=== PATIENT | female | born 1985 | race Caucasian/White ===

== ENCOUNTER 2021-02-12 06:06 | Inpatient (IN) | payer OTHER, SELFPAY ==
[2021-02-12] VITALS (112 sets, daily range): BP systolic 95–145; BP diastolic 58–107; PULSE 65–122; RESP 18; TEMP 36.6–36.9; O2SAT 94–99; BMI 27.4
--- OUTSIDE RECORDS SUMMARY | 2021-02-12 06:14 | XMS_ITS | Encounter Summary ---
:1985 Author Care Team Providers Name Role Phone Jasmyne Damon Primary Care Provider [phone] Reason for Visit OB visit Assessment and Plan 1. Routine care Discussion Note: None recorded.Patient educational handouts: No information available. Plan of Care Reminders Provider Appointments Ob Routine Altagracia Torres CNM 02/19/2021 8:30AM Lab None ? ? recorded. Referral None ? ? recorded. Procedures None ? ? recorded. Surgeries None ? ? recorded. Imaging None ? ? recorded. Medications Name Start Date ? ? umimgrmuyr-admmzayzqynzk-wqxxfqqa 50 mg-300 mg-40 mg c apsule ? TAKE ONE CAPSULE BY MOUTH EVERY 4 HOURS ondansetron HCl 4 mg tablet ? TAKE 1 TABLET BY MOUTH EVERY 6 HOURS NEEDED FOR NA USEA OR VOMITING ? sertraline 50 mg tablet ? TAKE 1 TABLET BY MOUTH EVERY DAY Unisom (diphenhydramine) ? Medications Administered None recorded. Vitals Height Weight BMI Blood Pressure 5 ft 0.25 in 150 lbs 29.1 kg/m2 (1) 144/81 mm[H g] (2) 122/80 mm[Hg ] Results Lab Results None recorded. Allergies Code Code System Name Reaction Severity Onset
--- OUTSIDE RECORDS SUMMARY | 2021-02-12 06:14 | XMS_ITS | Encounter Summary ---
:1985 Author Care Team Providers Name Role Phone Jasmyne Damon Primary Care Provider [phone] Reason for Visit OB visit Assessment and Plan 1. Routine care 2. Varicose veins of legs in pre gnancy 3. Umbilical hernia Discussion Note: None recorded.Patient educational handouts: No information available. Plan of Care Reminders Provider Appointments Ob Routine Altagracia Torres CNM 02/19/2021 8:30AM Lab None ? ? recorded. Referral None ? ? recorded. Procedures None ? ? recorded. Surgeries None ? ? recorded. Imaging None ? ? recorded. Medications Name Start Date ? ? gtkrjtvqhl-gbbsaqfbmgwml-ixnopgya 50 mg-300 mg-40 mg c apsule ? [...] BMI Blood Pressure 5 ft 0.25 in 138 lbs 26.7 kg/m2 115/70 mm[Hg] Results Lab Results None recorded. Allergies Code Code Sy
--- OUTSIDE RECORDS SUMMARY | 2021-02-12 06:14 | XMS_ITS | Encounter Summary ---
:1985 Author Care Team Providers Name Role Phone Jasmyne Damon Primary Care Provider [phone] Reason for Visit OB visit Assessment and [...] recorded. Medications Name Start Date ? ? yolnqrnign-robxewcvodwht-xmmfzinx 50 mg-300 mg-40 mg c apsule ? [...] BMI Blood Pressure 5 ft 0.25 in 148 lbs 28.7 kg/m2 118/76 mm[Hg] Results Lab Results None recorded. Allergies Code Code System Name Reaction Severity Onset Sulfa ?
--- OUTSIDE RECORDS SUMMARY | 2021-02-12 06:14 | XMS_ITS ---
:1985 Author Care Team Providers Name Role Phone LINNETTE INFANTE Primary Care Provider [phone] Allergies Code Code Name Reaction Severity Status Onset System Sulfa ? ? Active ? (Sulfonamide Antibiotics) 21185 RxNorm Sulfanilamide ? ? Deactivated ? Medications Name Status Start Date Stop Date ? ? Afluria Qd (36 mos up)(PF)60 mcg (15 mcg x4)/0 .5 mL IM syringe Completed ? 06/26/2020 ADM 0.5ML IM UTD amitriptyline 75 mg tablet Completed 03/05/201808/17 take 1 tablet by oral route every day at bedtime amoxicillin 500 mg tablet Completed ? 2020 spjehgeiek-gvxateaesxfxy-rycvrylf 50 mg-300 mg-40 mg capsule Act ezekiel ? Not available TAKE ONE CAPSULE BY MOUTH EVERY 4 HOURS fenugreek seed extract 500 mg Completed ? capsule fluconazole 150 mg tablet Completed ? 2019 metronidazole 0.75 % vaginal gel Completed ? 10/31/2020 INSERT ONE APPLICATORFUL VAGINALLY AT BEDTIME FOR 5 DAYS Tatyana 0.35 mg tablet Active 06/11/2019 Not availa ble take 1 tablet by oral route every day ondansetron HCl 4 mg tablet Active ? Not available TAKE 1 TABLET BY MOUTH EVERY 6 HOURS NEEDED FOR NAUSEA OR VO MITING oseltamivir 75 mg capsule Completed ? 2020 TAKE 1 CAPSULE BY MOUTH TWICE DAILY FOR 5 DAYS Active ? Not available + DHA 28 mg iron-975 mcg-200 mg oral pack Completed 04/27/2018 08/17/2018
--- OUTSIDE RECORDS SUMMARY | 2021-02-12 06:14 | XMS_ITS | Encounter Summary ---
:1985 Author Care Team Providers Name Role Phone Jasmyne Damon Primary Care Provider [phone] Reason for Visit OB visit Assessment and [...] recorded. Medications Name Start Date ? ? zueggvbadk-pnqwkmueyfuwb-zbozvsmm 50 mg-300 mg-40 mg c apsule ? [...] ft 0.25 in 150 lbs 29.1 kg/m2 122/77 mm[Hg] Results Lab Results None recorded. Allergies Code Code System Name Reaction Severity Onset Sulfa ?
--- OUTSIDE RECORDS SUMMARY | 2021-02-12 06:14 | XMS_ITS | Encounter Summary ---
:1985 Author Care Team Providers Name Role Phone Jasmyne Damon Primary Care Provider [phone] Reason for Visit OB visit Assessment and Plan Assessment Note Patient is ___weeks . Discu ssed plan. 1. Routine care Discussion Note: None recorded.Patient educational handouts: No information available. Plan of Care Reminders Provider Appointments Ob Routine Altagracia Torres CNM 02/19/2021 8:30AM Lab None ? ? recorded. Referral None ? ? recorded. Procedures None ? ? recorded. Surgeries None ? ? recorded. Imaging None ? ? recorded. Medications Name Start Date ? ? cinmnmfarg-gbihhtdgounlv-iuamgayp 50 mg-300 mg-40 mg c apsule ? [...] BMI Blood Pressure 5 ft 0.25 in 142 lbs 27.5 kg/m2 113/74 mm[Hg] Results Lab Results None recorded. Allergies Code
[2021-02-12] MEDS: LACTATED RINGERS 1,000 ML 125 ML IV CONT ×2 (06:47→10:35)
--- NOTE | 2021-02-12 06:57 | LDADM ---
This patient, Elier Taylor, was admitted to Labor/Delivery/Recovery 106 on 02/12/21 at 06:06. Plans for labor, pain management and were discussed with patient. Patient/family oriented to hospital policies and general routines including ID bracelet, bed and alarms, visiting hours, pain management, procedures, bathroom and other care routines, personal items, smoking policy, room service/diet and guest tray routines, infant security routines, and visiting hours. Patient/Family are encouraged to report perceived risks to care and to ask questions if they do not understand what they are told or what they should do. See OBIX for further documentation.
[2021-02-12 06:59] LABS: Basophils Percent Auto 0.4 % (0.2-1.2); Eosinophils Absolute Auto 0.1 K/mm3 (0-0.3); Eosinophils Percent Auto 1.5 % (0-4.4); Hematocrit 39.4 % (37.0-47.0); Hemoglobin 13.1 g/dL (12.0-15.0); Immature Granulocyte Absolute 0.11 K/mm3 (0.00-0.031); Immature Granulocyte Percent A 1.2 % (0-0.5); Lymphocytes Absolute Auto 1.72 K/mm3 (0.9-3.2); Mean Corpuscular HGB Conc 33.2 g/dl (32-36); Mean Corpuscular Hemoglobin 30.5 pg (26-34); Mean Corpuscular Volume 91.8 fl (80-100); Monocytes Percent Auto 10.9 % (2.6-8.5); Neutrophils Absolute Auto 6.5 K/mm3 (1.3-6.7); Platelet Count Result 184 k/mm3 (150-375); Red Blood Count 4.29 M/mm3 (4.2-5.4); Red Cell Distribution Width 14.1 % (11.5-14.5); White Blood Count 9.5 K/mm3 (4.5-10.0)
[2021-02-12] MEDS: OXYTOCIN 30 UNITS/NS 500 ML 30 UNITS/500 ML BAG IV CONT (07:55)
--- NOTE | 2021-02-12 07:57 | PM.IMHP ---
H&P: HPI History of Present Illness Date/Time: 02/12/21 07:57 Chief Complaint: induction of labor Narrative: Elier is a 36yo at 39.1 who presents for elective IOL. complicated by migraines, anxiety, and umbilical hernia. Today on admission, she was transverse by Jael. BSUS confirmed this with head initially in RUQ. During BSUS fetus converted to oblique/vertex. Review of Systems Review of Systems: All systems reviewed & are unremarkable except as noted in HPI and below PMFSH Family History Family History Mother Diabetes mellitus Hypertension Grandparent Chronic obstructive pulmonary disease Social History Social History (System 05/03/19 @ 15:26 by Jewell Santos) Smoking status: Never smoker Second hand tobacco smoke exposure: Yes Substance use: never Spiritual care concerns: No Meds Home Medications and Allergies Home Medications Medication Instructions Recorded Confirmed Type PNV cmb#95-ferrous fumarate-FA 1 tablet PO DAILY 04/19/19 04/19/19 History [] acetaminophen [Mapap 650 mg PO Q6H PRN tablet 05/05/19 Rx (acetaminophen)] diphenhydramine HCl [Unisom 50 mg PO HS 01/22/21 01/22/21 History SleepGels] magnesium 30 mg PO DAILY 01/22/21 01/22/21 History sertraline 50 mg PO DAILY 01/22/21 01/22/21 History Allergies Allergy/AdvReac Type Severity Reaction Status Date / Time Sulfa (Sulfonamide Allergy Mild Hives / Verified 05/03/19 19:12 Antibiotics) Red Face Vital Signs Vital Signs - 24 hr 02/12/21 06:29 02/12/21 06:31 02/12/21 06:46 Pulse Rate 89 87 88 Blood Pressure 136/91 H 129/85 130/90 02/12/21 07:01 02/12/21 07:16 02/12/21 07:31 Pulse Rate 115 H 87 89 Blood Pressure 131/85 122/80 122/87 Exam Const: General: no acute distress Resp: Effort & Inspection: normal respiratory effort Auscultation: clear to auscultation bilaterally Cardio: Rate: regular rate Rhythm: regular rhythm GI: GI Palp: Yes Soft to palpation Extrem: General: normal to inspection H&P: Results Labs Labs: Short CBC 02/12/21 Range/Units 06:39 WBC 9.5 (4.5-10.0) K/mm3 Hgb 13.1 (12.0-15.0) g/dL Hct 39.4 (37.0-47.0) % Plt Count 184 (150-375) k/mm3 Assessment and Plan Additional Plan Here for induction of labor- but unstable lie Currently oblique/vertex. Will place abdominal binder and start pitocin. Cervix 50/-5. Cannot AROM due to very high station. GBS neg Planning interval LSC tubal in couple mos, will do with CS if CS is necessary. FHT category 1
--- NOTE | 2021-02-12 08:08 | W.PM.PROC2 ---
Procedure Note - Detailed Date of Procedure 02/12/21 Pre-op Diagnosis transverse lie Post-op Diagnosis same Procedure Performed External Cephalic Version Surgeon Nita Lang MD [facility] Labor Supervisor none Anesthesia none Indications Pt presented for induction at 39.1 and was found to be transverse lie. Findings Unstable lie- transverse with head RUQ, transverse head RLQ, oblique. Description of Procedure During ultrasound evaluation, when pressure was put on vertex in RLQ to assess how mobile the fetus was, the fetus converted to oblique and then quickly to vertex within seconds. Heart tones were reactive after this. An abdominal binder was placed and pitocin was started. Estimated Blood Loss 0 Drains No Packing No Pathology none sent Complications None Condition stable Disposition observation
--- NOTE | 2021-02-12 08:44 | WPDANESEPP ---
Anes - Eval Pre Procedure Date/Time: 02/12/21 08:44 Pre Op Diagnosis: Induction of Labor Patient Data Age: 36 Gender: F Height: 1.57 m Weight: 68.1 kg Last Vital Signs Temp 36.9 C 02/12/21 08:00 Pulse 90 02/12/21 08:31 BP 127/86 02/12/21 08:31 Allergies Allergy/AdvReac Type Severity Reaction Status Date / Time Sulfa (Sulfonamide Allergy Mild Hives / Verified 05/03/19 19:12 Antibiotics) Red Face Home Medications Medication Instructions Recorded Confirmed Type PNV cmb#95-ferrous fumarate-FA 1 tablet PO DAILY 04/19/19 02/12/21 History [] acetaminophen [Mapap 650 mg PO Q6H PRN tablet 05/05/19 02/12/21 Rx (acetaminophen)] diphenhydramine HCl [Unisom 50 mg PO HS 01/22/21 02/12/21 History SleepGels] magnesium 30 mg PO DAILY 01/22/21 02/12/21 History sertraline 50 mg PO DAILY 01/22/21 02/12/21 History Laboratory Tests 02/12/21 02/12/21 02/12/21 06:37 06:37 06:39 WBC 9.5 K/mm3 K/mm3 (4.5-10.0) RBC 4.29 M/mm3 M/mm3 (4.2-5.4) Hgb 13.1 g/dL g/dL (12.0-15.0) Hct 39.4 % % (37.0-47.0) MCV 91.8 fl fl (80-100) MCH 30.5 pg pg (26-34) MCHC 33.2 g/dl g/dl (32-36) RDW 14.1 % % (11.5-14.5) Plt Count 184 k/mm3 k/mm3 (150-375) MPV 10.0 fl fl (7.4-10.4) Immature Gran % (Auto) 1.2 % H % (0-0.5) Neut % (Auto) 68.0 % % (45.5-73.1) Lymph % (Auto) 18.0 % L % (18.3-44.2) [place] % (Auto) 10.9 % H % (2.6-8.5) Eos % (Auto) 1.5 % % (0-4.4) Baso % (Auto) 0.4 % % (0.2-1.2) Lymph # (Auto) 1.72 K/mm3 K/mm3 (0.9-3.2) [place] # (Auto) 1.0 K/mm3 H K/mm3 (0.1-0.6) Eos # (Auto) 0.1 K/mm3 K/mm3 (0-0.3) Baso # (Auto) 0.0 K/mm3 K/mm3 (0.0-0.1) Abs Immat Gran (auto) 0.11 K/mm3 H K/mm3 (0.00-0.031) Absolute Neuts (auto) 6.5 K/mm3 K/mm3 (1.3-6.7) Absolute Nucleated RBC 0.0 K/mm3 K/mm3 (0.0-0.012) Nucleated RBC % 0.0 % % (0.0-0.2) RPR Pending Blood Type A Positive Antibody Screen Negative Patient hx anesthesia problems: none Family hx anesthesia problems: none [facility] Family History Family History Mother Diabetes mellitus Hypertension Grandparent Chronic obstructive pulmonary disease Social History Social History Smoking status: Never smoker Second hand tobacco smoke exposure: Yes Substance use: never Spiritual care concerns: No Exam Day of Procedure 02/12/21 08:44 Patient weight: normal Heart: regular rate and rhythm Lungs: normal air movement Airway: Mallampati scale class II Neurological: alert and oriented
[2021-02-12] MEDS: LACTATED RINGERS 1,000 ML 999 ML IV CONT (09:24)
--- NOTE | 2021-02-12 15:42 | PM.OBPRVD ---
OB - Delivery Note Procedure Delivery date: 02/12/21 Procedure: Intrapartal events: Other (unstable lie) Induction method: AROM and per pitocin protocol Delivery monitor: external FHT and internal uterine Route of delivery: Laceration Description: None Specimen: No Quantitative Blood Loss (ml): 350 Anesthesia type: Epidural Disposition: floor Narrative: With adequate expulsive efforts by the mother, the baby's head was delivered OA. The baby's anterior shoulder was delivered under the pubic symphysis without difficulty. The posterior shoulder and the rest of the baby delivered without difficulty. The infant was placed on the mothers chest and suctioned and stimulated. The cord was clamped and cut after 30 seconds. Mother and baby both stable. Baby Date of : 02/12/21 Time of : 15:28 Weeks of gestation at delivery: 39 Infant gender: Female Weight (pounds): 7 Weight (ounces): 15 presentation: vertex Placenta delivery description: Spontaneous cord vessel description: 3 Vessels, Nuchal Cord and Delayed Cord Clamping score one minute: 8 score five minutes: 8
[2021-02-12] MEDS: OXYTOCIN 30 UNITS/NS 500 ML 30 UNITS/500 ML BAG 125 UNITS IV CONT (16:14)
[2021-02-12] MEDS: IBUPROFEN 600 MG TABLET PO (16:53)
[2021-02-12] MEDS: SERTRALINE HCL 50 MG TABLET PO (23:27)
[2021-02-13 00:10] VITALS: BP 114/69; PULSE 83; RESP 16; TEMP 36.6; O2SAT 97
[2021-02-13 04:18] VITALS: BP 112/71; PULSE 75; RESP 18; TEMP 36.6; O2SAT 98
[2021-02-13 05:18] LABS: Hematocrit 36.4 % (37.0-47.0)
[2021-02-13 07:20] VITALS: BP 115/74; PULSE 74; RESP 18; TEMP 36.7
--- NOTE | 2021-02-13 07:46 | P.PNOB_ITS ---
OB - PN: Subj Subjective Date/time seen: 02/13/21 07:46 Patient comments: no complaints and pain well controlled baby status: nursing well [place] feeding status: exclusively breast feeding Narrative: Desires DC home today. E/A/V. OB - PN: Obj Data Labs CBC & Chem 7: 02/13/21 04:02 Labs: Laboratory Results - last 24 hr 02/12/21 02/13/21 06:37 04:02 Hgb 12.0 Hct 36.4 L Blood Type A Positive Antibody Screen Negative OB - PN A/P Plan day: 1 Plan: routine care and discharge home Comments: DC instructions given Time Spent With Patient Time: Total time spent is greater than 50% in coordination of care (as documented) at patient's floor/unit and/or counseling patient: Time with patient: less than 15 minutes Exam Narrative: NAD abdomen soft, nontender, fundus firm below the umbilicus Extremities nontender, 1+ edema
--- NOTE | 2021-02-13 07:54 | PM.OBDSVD ---
DS: Admitting Diagnosis Discharge Date 02/13/21 Admitting Diagnosis term DS: Discharge Diagnosis Discharge Diagnosis (1) , delivered: Code(s): O80 - Encounter for full-term uncomplicated delivery Status: Acute OB - DS: Summary OB Procedures : Ultrasound and External version OB Procedures Intrapartum: Spontaneous Vag Delivery OB Procedures: : None Peripartum Data Infant Delivery Method: Natural Vaginal complications: none Status at Discharge Functional status at discharge: independent ambulation Time Spent with Patient Time attestation: Total time spent providing and/or coordinating discharge services: Time spent: Less than 30 minutes Exam Narrative: NAD abdomen soft, appropriately tender Ext non tender, 1+ edema DS: Data Data Completed and Pending Labs on day of discharge: Labs from last 24 hours 02/13/21 02/12/21 04:02 06:37 Hgb 12.0 Hct 36.4 L Blood Type A Positive Antibody Screen Negative Discharge Plan Discharge Attending physician on discharge: Nita Lang Discharging Clinician: Nita Lang Anticipated Discharge Date/Time: 02/13/21 12:00 Patient Disposition: Home, Self-Care Activity: pelvic rest Diet: as tolerated Patient Instructions: Antibiotic Form Stand Alone Forms: General Discharge Information Follow-up/Referrals: Nita Lang MD [Physician] - 4 Weeks Discharge Medications: Continued PNV cmb#95-ferrous fumarate-FA [] 28 mg iron- 800 mcg Tablet 1 tablet PO DAILY RF: 0 acetaminophen [Mapap (acetaminophen)] 325 mg Tablet 650 mg PO Q6H PRN (Reason: Mild Pain (1-3) Or Headache) RF: 0 sertraline 50 mg Tablet 50 mg PO DAILY RF: 0 magnesium 30 mg Tablet 30 mg PO DAILY RF: 0 Discontinued diphenhydramine HCl [Unisom SleepGels] 50 mg Capsule 50 mg PO HS RF: 0 Date of admission: 02/12/21 06:06 Primary Care Provider: UNKNOWN,DOCTOR Admitting Provider: Nita Lang Attending physician on admission: Nita Lang Condition: Stable
[2021-02-13 09:46] LABS: Rapid Plasma Reagin Non-Reactive (NonReactive)
--- NOTE | 2021-02-13 10:50 | WPDANLDPN2 ---
Anes-Prog Note L&D Date/Time: 02/13/21 10:50 Comfortable throughout: labor and delivery Neuraxial method: epidural Neuro status: Neuro function grossly intact. Cardiovascular status: normal Respiratory status: normal Airway patency: baseline Mental status: baseline Post-Op hydration status: normal Vital Signs: Last Vital Signs Temp 36.7 C 02/13/21 07:20 Pulse 74 02/13/21 07:20 Resp 18 02/13/21 07:20 BP 115/74 02/13/21 07:20 Pulse Ox 98 02/13/21 04:18 Pain score (VAS): 0 I/O: Intake & Output 02/12/21 02/13/21 02/13/21 23:59 07:59 15:59 Intake Total 1400 Balance 1400 Post-procedural complaints: none Patient feedback: Patient satisfied with anesthetic care.
[2021-02-13 12:10] VITALS: BP 118/63; PULSE 81; RESP 18; TEMP 36.9; O2SAT 97
--- NOTE | 2021-02-13 15:00 | PC.NURSE ---
PT introductions made and plan of care discussed per post , pain management, breast feeding, daily care activities and pending discharge to home. PT sole recipient of education and instructions this shift. Pt received instructions per one to one discussion , mom baby care guide and demonstrations. No evidence of any learning barriers at this time. PT verbalized understanding
[2021-02-13] MEDS: IBUPROFEN 600 MG TABLET PO (16:34)
[2021-02-13] MEDS: DOCUSATE SODIUM 100 MG CAPSULE PO (16:34)
--- NOTE | 2021-02-13 18:00 | PC.NURSE ---
Pt receive discharge instructions per protocol and verbalized understanding of such care. Patient was given the opportunity to view the discharge video Mother & Baby Care, The First Two Weeks and to ask questions. Patient declined viewing the video and has been given the mother/baby guide for home reference.
--- NOTE | 2021-02-13 19:01 | PC.NURSE ---
PT discharged to home ambulatory unaccompanied with in safety seat and escorted to waiting car. Follow up appts confirmed
[2021-02-16 09:26] VITALS: BP 115/74; PULSE 96; RESP 20; TEMP 36.8; O2SAT 100
== END 2021-02-13 19:01 | disposition home or self-care (01) | DRG 807 ==
LOC: ANHLDR 06:12 → ANHOB2 18:39
PROVIDERS: Admitting Provider Obstetrics & Gynecology; Visit Provider Obstetrics & Gynecology
DX: O32.2XX0 Maternal care for transverse and oblique lie, not applicable or unspecified (principal); Z37.0 Single live birth; Z3A.39 39 weeks gestation of pregnancy; O69.81X0 Labor and delivery complicated by cord around neck, without compression, not applicable or unspecified; O99.344 Other mental disorders complicating childbirth; F41.9 Anxiety disorder, unspecified; O99.62 Diseases of the digestive system complicating childbirth; K42.9 Umbilical hernia without obstruction or gangrene
CPT/HCPCS: 36415; 85014; 85018; 85025; 86592; 86850; 86900; 86901; A9270; J2590; J2795; J7120

== ENCOUNTER 2021-04-16 00:08 | Day surgery (SDC) | payer OTHER, SELFPAY ==
[2021-04-13 08:47] VITALS: BMI 23.8
--- NOTE | 2021-04-13 08:57 | PC.NURSE ---
Report to the Outpatient Waiting Room, entrance under the green pavilion located off [facility], at time 1000 on date 04/16/21. OR Time: 1200. - You and your visitor will be asked a series of questions to screen for COVID 19 for your protection. - A mask is required within the hospital. - Only one visitor is allowed at this time. Patient visitors will be guided where to wait when not with patient. Preoperative COVID Testing Requirements: No COVID Test needed if: (proof is required; if not received patient will have Rapid Test prior to entry) - Patient has received COVID Vaccine at least 14 days prior to procedure date or - Patient has positive COVID test result within last 90 days of surgery date. COVID Test needed if above criteria is not met If not COVID vaccinated a COVID test must be conducted within 72 hours of surgery and patient is asked to isolate self from time of testing until procedure. You will go to the [facility] for your COVID testing. The [facility] site is located at the corner of [address] [facility]. You will only be called if COVID results are positive and your surgeon may reschedule your elective surgery date. Patients may have clear liquids (water, carbonated beverages, clear teas, apple juice) until 3 hours prior to surgery with a maximum of 20 ounces. - No food from midnight until time of surgery - Infants may have breast milk until 4 hours before surgery, infant formula 6 hours prior to surgery. - Children will be allowed to drink immediately following surgery. If applicable, please bring a bottle or sippy cup to assist with drinking. Juice, water, soda, and popsicles are readily available. For infants on formula, please bring formula the day of surgery. Pacifiers are allowed. Take the following medications with a SIP of water the morning of surgery: N/A Medications to discontinue per physician: VITAMINS Date to take last dose: 04/13/21 Please no make-up, nail turkmen, hairspray, perfume, deodorant, or body powder the day of surgery. No jewelry (including any body piercings) or valuables the day of surgery, leave them at home. Please take a shower or bath the night before, or the morning of, surgery with an antibacterial soap. Wear comfortable, loose fitting clothing. Children are encouraged to wear pajamas. - Jewelry must be removed prior to entering the operating room. Rings and piercings that are not removed may be cut off. - The hospital will not accept responsibility for valuables. - Please leave all valuables, including medications, at home the day of surgery. If you are going home after surgery, a licensed driver helper must drive you home. - NO public transportation without another adult. - We recommend that an adult stay with you for 24 hours following discharge. - We also recommend that you do not drive, make important decision, drink alcoholic beverages, or take any drugs that were not prescribed by your health care provider for at least 24 hours after your discharge time. For Pediatric surgeries, we recommend two adults accompany the child home (only one inside the building at this time). Follow any additional instructions given to you from your surgeon. Telephone instructions given to WAYLON STEPHENS and asked if any additional questions and then verbalized understanding. Patient advised to call surgeon office or pre surgery nurse liaison [phone] if any additional questions.
[2021-04-16] VITALS (10 sets, daily range): BP systolic 107–125; BP diastolic 65–80; PULSE 66–87; RESP 12–20; TEMP 36.3; O2SAT 96–100
--- NOTE | 2021-04-16 07:50 | PM.HPGS ---
History of Present Illness History of Present Illness Consent: Risks, benefits, and alternatives of a periumbilical ventral hernia repair, laparoscopic, with mesh have been discussed and questions answered. Patient agrees to proceed with procedure. Chief complaint: umbilical hernia Narrative: Elier Taylor is a 36 year old female that recently presented to the office at the request of Dr Noble for an evaluation of an umbilical hernia. Patient reports that she had a umbilical bulge that is reducible that is painful at times. She reports she noticed the hernia in May 2019 after delivery of her son. She thought this would go away with time however instead with time it has become larger. She reports she did get again and delivered her daughter on 02/12/21. She reports that she does occasionally have pain. She reports that she can reduce the hernia when laying down however as soon as she stands up it protrudes out again. When discussing her pervious surgical history she reports that she had to have an IUD removed in 2007, this was removed laparoscopically. Review of Systems Review of Systems: All systems reviewed & are unremarkable except as noted in HPI and below (HPI) Constitutional: Constitutional: Reports as per HPI, Denies chills and Denies fever(s) Eyes: Eyes: Reports no additional eye complaints ENT: Reports Normal hearing present and Denies dizziness Cardiovascular: Cardiovascular: Reports no additional cardiovascular complaints, Denies chest pain and Denies irregular heart rhythm Respiratory: Respiratory: Reports no additional respiratory complaints Gastrointestinal: Gastrointestinal: Reports no additional gastrointestinal complaints, Denies abdominal pain and Denies bloating Comments: diffuse discomfort at the site had an just below her umbilicus with bulging. Genitourinary: Genitourinary: Denies hematuria Comments: Recently (see OB notes). Musculoskeletal: Musculoskeletal: Denies back pain Integumentary/Breasts: Skin/Breast: Reports system reviewed and no additional complaints, except as docu Neurologic: Reports Normal hearing present, Denies Abnormal speech present, Denies confusion and Denies dizziness Psychiatric: Psychiatric: Reports no additional psychiatric complaints and Denies confusion Endocrine: Endocrine: Reports no additional endocrine complaints Hematologic/Lymphatic: Hematologic/Lymphatic: Denies easy bleeding and Denies easy bruising Allergic/Immunologic: Allergic/Immunologic: Reports no additional allergic/immunologic complaints PMFSH Past Medical History Medical History Depression Surgical History Surgical History History of knee surgery History of tonsillectomy Family History Family History Mother Diabetes mellitus Hypertension Grandparent Chronic obstructive pulmonary disease Social History Social History Smoking status: Never smoker Second hand tobacco smoke exposure: Yes Alcohol intake: never Substance use: never Substance use type: does not use Living arrangements: with family Additional living arrangements comments: CHILDREN 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 Spiritual care concerns: No Meds Home Medications and Allergies Home Medications Medication Instructions Recorded Confirmed Type PNV cmb#95-ferrous fumarate-FA 1 tablet PO DAILY 04/19/19 04/16/21 History [] sertraline 50 mg PO HS 01/22/21 04/16/21 History diphenhydramine HCl 50 mg capsule 50 mg PO QHS 02/27/21 04/16/21 History Allergies Allergy/AdvReac Type Severity Reaction Status Date / Time Sulfa (Sulfonamide Allergy Mild Hives / Verified 04/16/21 11:03 Antibiotics) Red Face Exam Const:
[2021-04-16] MEDS: LACTATED RINGERS 1,000 ML 30 ML IV CONT ×2 (10:42→14:07)
[2021-04-16] MEDS: ACETAMINOPHEN 500 MG TABLET 1000 MG PO (10:45)
[2021-04-16] MEDS: KETOROLAC 15 MG/ML VIAL (*BKC) IV PUSH (10:46)
--- NOTE | 2021-04-16 11:09 | WPDANESEPPF ---
Anes - Initial Pre Proc Eval Procedure: Operation Date: 04/16/21 12:00 Proposed Procedures p Laparoscopic Umbilical Hernia Repair with Mesh - Gregory Rollins MD s Laparoscopic Bilateral Salpingectomy - Nita Lang MD Date/Time: 04/16/21 11:09 Surgeon: Gregory Rollins MD Pre Op Diagnosis: umbilical hernia Patient Data Age: 36 Gender: F Height: 1.57 m Weight: 59.2 kg Last Vital Signs Temp 36.3 C L 04/16/21 11:04 Pulse 75 04/16/21 11:04 Resp 18 04/16/21 11:04 BP 111/70 04/16/21 11:04 Pulse Ox 100 04/16/21 11:04 Allergies Allergy/AdvReac Type Severity Reaction Status Date / Time Sulfa (Sulfonamide Allergy Mild Hives / Verified 04/16/21 11:03 Antibiotics) Red Face Home Medications Medication Instructions Recorded Confirmed Type PNV cmb#95-ferrous fumarate-FA 1 tablet PO DAILY 04/19/19 04/16/21 History [] sertraline 50 mg PO HS 01/22/21 04/16/21 History diphenhydramine HCl 50 mg capsule 50 mg PO QHS 02/27/21 04/16/21 History Patient hx anesthesia problems: none Family hx anesthesia problems: none Results Review: All pre-operative results and documents have been reviewed as part of the pre-operative evaluation. 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 Informed Consent: The patient's anesthetic plan and its attendant risks and benefits were discussed with the patient/family/POA. Questions were solicited and answers provided to the satisfaction of the patient/family/POA.
--- NOTE | 2021-04-16 12:00 | PM.IMHP ---
H&P: HPI History of Present Illness Date/Time: 04/16/21 12:00 Chief Complaint: sterilization Narrative: Elier is a with a 2mo here for sterilization with bilateral salpingectomy at the same time as umbilical hernia repair with Dr. Rollins. Review of Systems Review of Systems: All systems reviewed & are unremarkable except as noted in HPI and below PMFSH Past Medical History Medical History Depression Surgical History Surgical History History of knee surgery History of tonsillectomy Family History Family History Mother Diabetes mellitus Hypertension Grandparent Chronic obstructive pulmonary disease Social History Social History Smoking status: Never smoker Second hand tobacco smoke exposure: Yes Alcohol intake: never Substance use: never Substance use type: does not use Living arrangements: with family Additional living arrangements comments: CHILDREN 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[employer] Spiritual care concerns: No Meds Home Medications and Allergies Home Medications Medication Instructions Recorded Confirmed Type PNV cmb#95-ferrous fumarate-FA 1 tablet PO DAILY 04/19/19 04/16/21 History [] sertraline 50 mg PO HS 01/22/21 04/16/21 History diphenhydramine HCl 50 mg capsule 50 mg PO QHS 02/27/21 04/16/21 History Allergies Allergy/AdvReac Type Severity Reaction Status Date / Time Sulfa (Sulfonamide Allergy Mild Hives / Verified 04/16/21 11:03 Antibiotics) Red Face Vital Signs Vital Signs - 24 hr 04/16/21 11:04 Temperature 97.3 F L Pulse Rate 75 Respiratory Rate 18 Blood Pressure 111/70 Pulse Oximetry 100 Exam Const: General: no acute distress Resp: Effort & Inspection: normal respiratory effort Auscultation: clear to auscultation bilaterally Cardio: Rate: regular rate Rhythm: regular rhythm GI: GI Palp: Yes Soft to palpation Extrem: General: normal to inspection Assessment and Plan Assessment and plan (1) Sterilization: Code(s): Z30.2 - Encounter for sterilization Status: Acute Additional Plan Will proceed with LSC bilateral salpingectomy. Dr Rollins to place ports, i will do salpingectomy, and he will complete hernia repair and close. Pt and 100% sure they do not desire more pregnancies.
--- NOTE | 2021-04-16 12:03 | WPDHPUPDATE1 ---
History and Physical Update Update Date/Time: 04/16/21 12:03 History and Physical has been reviewed, including an updated exam of the patient. There are NO changes in the patient's condition. Risks, benefits, and alternatives have been discussed and questions answered. Patient agrees to proceed with procedure.
[2021-04-16] MEDS: ceFAZolin 2 GM/D5W 50 ML 2 GM/50 ML BAG IVPB (12:06)
--- NOTE | 2021-04-16 12:08 | WPDHPUPDATE1 ---
History and Physical Update Update Date/Time: 04/16/21 12:08 History and Physical has been reviewed, including an updated exam of the patient. There are NO changes in the patient's condition. Risks, benefits, and alternatives have been discussed and questions answered. Patient agrees to proceed with procedure.
[2021-04-16] MEDS: LIDO 2%/EPINEPHRINE 1:100,000 20 ML VIAL INFILTRATE (12:14)
--- NOTE | 2021-04-16 13:16 | W.PM.PROC2 ---
Procedure Note - Detailed Date of Procedure 04/16/21 Pre-op Diagnosis umbilical hernia Post-op Diagnosis same Procedure Performed Laparoscopic Bilateral Salpingectomy Surgeon Nita Lang MD Anesthesia general Indications undesired future fertility Description of Procedure The patient was taken to the OR and placed in dorthal lithotomy in [facility]. She received general anesthesia. A speculum was placed and the cervix grasped with a single tooth tenaculum and an acorn uterine manipulator placed easily. A myers catheter had previously been placed. She had received preoperative antibiotics. As Dr. Rollins will subsequently be doing a laparoscopic umbilical hernia repair, he placed the ports and removed an adhesion of the omentum to the umbilical defect. The right tube was grasped and elevated and using the Ligasure device, the tube was sequentially cauterized and ligated and removed through the trocar and sent to pathology. Similarly, on the left, the tube was removed using the Ligasure device. Hemostasis was noted. The surgical field was turned back over to Dr. Rollins for the hernia repair. The uterine manipulator was removed and the cervix was noted to be hemostatic with pressure. EBL 5cc for my part. Estimated Blood Loss 5 Drains No Packing No Pathology yes Complications No immediate complications Condition stable Disposition same day
--- NOTE | 2021-04-16 14:20 | W.PM.PROC2 ---
Procedure Note - Detailed Date of Procedure 04/18/21 Pre-op Diagnosis umbilical hernia (with it mostly in the inferior part of umbilicus) Post-op Diagnosis same Procedure Performed Laparoscopic umbilical hernia repair with mesh Surgeon Gregory Rollins MD Scrap Worker Freida RICO, OR supply assistant Anesthesia general Description of Procedure DESCRIPTION OF PROCEDURE: The patient was placed in the supine position on the operative table and after induction of adequate general endotracheal anesthesia by Luis Antonio Anesthesia, the entire abdomen was prepped and draped in usual sterile fashion and the head placed slightly up. An Ioban drape was used to prevent contact of the mesh with the skin during this clean case. Following this, local anesthetic was placed and a spot selected about two fingerbreadths below the costal margin on the left and a small incision made after instilling local anesthetic using 2% Xylocaine with epinephrine. Following this, a Veress needle technique using the water drop test was completed. Using 2 towel clips on the skin, I carefully elevated the skin and then passed the Veress needle into the abdomen and we could see that the saline dropped through the Veress needle easily. CO2 gas was connected and the abdomen was insufflated to 14 mm Hg pressure. Following this, the 0 degree 5 mm laparoscope was placed inside a 5 mm trocar, which was carefully twisted into the abdomen without difficulty, seeing a open pneumoperitoneum as we entered. Thus, the trocar was removed, the sleeve confirmed to be nicely within the abdomen, and we carefully inspected the anterior abdomen. Careful inspection of the abdomen revealed no inguinal hernias. A small defect in the umbilicus that was actually difficult to see initially, but after placing a 12 mm port in the left lower quadrant under direct vision with the laparoscope, we could see up into a 25 mm multiloculated defect that had been measured then with an instrument with a known cm marker. There was no incarceration of any omentum, but some edge of the omentum stuck to the edge of the fascia superior side of the hernia defect. Other than that there were not any other adhesions to the underside of the umbilicus. We had a little bleeding from this, and lost about 5 mL of blood. This was nicely cauterized and then moved out of the way. Following this Dr. Nita Lang who was present in the room had discussed sterilization with the patient performed bilateral salpingectomies with a LigaSure device. (See her separate op note). As she began doing this it became apparent that another port was needed. Therefore, a right mid abdomen 5 mm port was placed under direct vision with a laparoscoped fairly far out laterally. She used this and I also used it to do some of the tacking on the left side of the mesh described below. Following this, we carefully planned by measuring the defect. Our mesh, a circular 11 cm piece of Venta-lite mesh was chosen, so that we would have 4.0 cm of overlap in all directions over the circular umbilical defect. Following this, the ventra-lite hernia system mesh was rolled and this was inserted through the LLQ 12 mm port after rolling it to protect the absorbable covering on the downside of the mesh. the company provided to centering suture and the rolled piece of mesh was placed through the 12 mm trocar and was positioned directly underneath the umbilicus such that I could grab this and pull it up through the umbilical area with a suture Passer. I used the suture passer after making a small opening with an 11 blade knife, after placing local anesthetic directly in the center of the umbilicus or the skin of the tissue lying directly over the umbilical defect. The suture passer was used to grasp this centering stitch on the piece of mesh, and this was pulled up, centering it. Then I pulled up on centering suture and placed hemostatic externally on it to keep i
[2021-04-16] MEDS: fentaNYL CITRATE INJ (*CRX) 100 MCG/2 ML VIAL 25 MCG IV PUSH ×4 (14:28→15:34)
--- NOTE | 2021-04-16 14:55 | SUR.PHASEI ---
[id number] - dr. jordan at bedside talking with pt
[2021-04-16] MEDS: oxyCODONE HCL (*CRX) 5 MG TAB IR PO (15:35)
== END 2021-04-16 16:50 | disposition home or self-care (01) ==
PROVIDERS: Obstetrics & Gynecology; Visit Provider Surgery
PROC: (CPT 49652; principal; 2021-04-16 12:00)
PROC: (CPT 49320; 2021-04-16 12:00)
DX: Z30.2 Encounter for sterilization (principal); K42.9 Umbilical hernia without obstruction or gangrene; F32.9 Major depressive disorder, single episode, unspecified
CPT/HCPCS: 58661; 49652; 36415; 86850; 86900; 86901; 88302; A9270; J0690; J1100; J1885; J2250; J2405; J2704; J2710; J3010; J7120